=== PATIENT | female | born 1980 | race Caucasian/White ===

== ENCOUNTER 2022-08-29 10:23 | Outpatient (CLI) | payer MEDICAID, SELFPAY ==
[2022-08-29 14:14] LABS: Ferritin* 4.2 ng/mL (6.24-137.0)
[2022-08-30 19:20] LABS: Rheumatoid Factor <10 IU/mL (0-14)
[2022-08-31 00:32] LABS: Anti-Nuclear Ab(ANA)IgG ELISA None Detected (None Detected)
== END 2022-08-29 10:24 | disposition home or self-care (01) ==
PROVIDERS: PCP Family Medicine; Visit Provider Otolaryngology
DX: J32.9 Chronic sinusitis, unspecified (principal); G25.81 Restless legs syndrome
CPT/HCPCS: 82728; 84443; 86039; 86431; 86617; 86618

== ENCOUNTER 2022-09-12 09:55 | Outpatient (CLI) | payer MEDICAID, SELFPAY ==
--- NOTE | 2022-09-12 10:00 | CRLHL7_ITS ---
For Patients: As a result of the Century Cures Act, medical imaging exams and procedure reports are released immediately into your electronic medical record. You may view this report before your referring provider. If you have questions, please contact your health care provider. INDICATION: Sinusitis. TECHNIQUE: Noncontrast CT images acquired through the paranasal sinuses. COMPARISON: None. FINDINGS: No air-fluid levels to suggest acute sinusitis. Mild left maxillary sinus mucosal thickening. The left ethmoid infundibulum is mildly opacified. Minimal mucosal thickening in the right maxillary sinus. The right ethmoid infundibulum is widely patent. Mild mucosal thickening in the left frontal recess. The frontal sinuses are otherwise clear. Mild opacification of the anterior ethmoid air cells. Minimal mucosal thickening in the sphenoid sinuses. The sphenoethmoidal recesses are clear. There is 3 mm leftward nasal septal deviation and 5 mm leftward directed septal spur contacting the left inferior nasal turbinate. No nasal cavity masses. The mastoid air cells are clear. IMPRESSION: 1. Mild paranasal sinus mucosal disease. No air-fluid levels to suggest acute sinusitis. 2. Leftward nasal septal deviation with leftward directed septal spur contacting the left inferior nasal turbinate. Please note that all CT scans at this facility use dose modulation, iterative reconstruction, and/or weight-based dosing when appropriate to reduce radiation dose to as low as reasonably achievable. Dictated by Jose David Stone MD @ 09/12/2022 9:50:04 PM (Electronically Signed)
--- OUTSIDE RECORDS SUMMARY | 2022-09-12 10:01 | XMS_ITS | Clinical Summary ---
:1980 Author Organization [email or web address] [place] [address] Care Team Providers Name Role Phone Pcp, No Primary Care Provider Unavailable Allergies No known active allergies Medications Medication Sig Dispensed Refills Start Date End Date Status IBUPROFEN 200 MG TAB 3 tabs every 6 0 07/07/2002 Active hours as needed ibuprofen (ADVIL; MOTRIN) 0 11/29/2015 Active 800 mg tablet cyclobenzaprine Use up to three 45 tablet 0 12/20/2015 Active (FLEXERIL) 10 mg times daily for tabletIndications: muscle Chronic low back pain spasm/back pain. Use mostly at night only, may make you drowsy. norethindrone, Take 0.35 mg by 0 12/05/2020 Active Contraceptive, (MICRONOR, mouth once 28,) 0.35 mg tablet daily. rizatriptan (MAXALT) 10 0 12/05/2020 Active mg tablet Active Problems Problem Noted Date Acute pain of right knee 12/20/2015 Chronic low back pain 12/20/2015 Overview: Patient reported MRI at 16 years old wit h disk leaking. Migraine headache 12/20/2015 Social History Tobacco Use Types Packs/Day Years Used Date Current Every Day Smoker Cigarettes, Cigars 1 5 Smokeless Tobacco: Never Used Tobacco Cessation: Ready to Quit: No; Co unseling Given: Yes Alcohol Use Standard Drinks/Week Comments Yes 10 (1 standard drink = 0.6 oz pure alcoh ol) Sex Assigned at Date Recorded Not on file Obstetrics History Last Filed Vital Signs Vital Sign Reading Time Taken Comments Blood Pressure 111/78 01/11/2021 9:38 AM CDT tower Pulse 75 01/11/2021 9:38 AM CDT Temperature 36.4 ??C (97.5 ??F) 07/07/2006 7:28 AM CDT Respiratory Rate 16 07/07/2006 9:00 AM CDT Oxygen Saturation 99% 01/11/2021 9:38 AM CDT Inhaled Oxygen Concentration - - Weight 105.7 kg (233 lb) 01/11/2021 9:38 AM CDT Height 164 cm (5' 4.57) 12/20/2015 9:08 AM CDT Body Mass Index 39.3 12/20/2015 9:08 AM CDT Plan of Treatment Health Maintenance Due Date Last Done Comments COVID-19 vaccine series (#1) 1980 Tdap 02/09/1991 Depression screening for age 12+ 1992 HIV for age 15-65 02/09/1995 Hepatitis C screening for age 0502/09/1998 18-79 Tetanus booster 2000 BMI (ht and wt on same day) for 12/19/2016 12/20/2015 age 18+ Pap test for age 21-65 03/10/2022 03/10/2019, 03/10/2019, 06/13/2017, Additional history exists Influenza for age 9-49 06/07/2022 Results Not on filefrom Last 3 Months Insurance Payer Benefit Plan / Subscriber ID Effective Dates Phone Addre ss Type Group JAVON ALEJANDRO [place] [id number] 2019-Present [address] [place] [address] 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
== END 2022-09-12 09:56 | disposition home or self-care (01) ==
LOC: CT 09:56
PROVIDERS: PCP Family Medicine; Visit Provider Otolaryngology
DX: J32.9 Chronic sinusitis, unspecified (principal); J34.2 Deviated nasal septum
CPT/HCPCS: 70486

== ENCOUNTER 2024-10-06 11:52 | Emergency (ER) | payer OTHER, SELFPAY ==
[2024-10-06 11:57] VITALS: BP 165/89; PULSE 62; RESP 18; TEMP 36.8; O2SAT 96; BMI 40.3
--- NOTE | 2024-10-06 12:15 | ED_ITS ---
HPI - Headache General Chief Complaint: Headache/Migraine Stated Complaint: Migraine wants cocktail Time Seen by Provider: 10/06/24 11:59 History of Present Illness HPI Narrative: This 44-year-old female comes in with migraine headache symptoms that started about 10 hours prior to arrival. She states that she gets frequent migraine type headaches and this 1 is no different than others in the past. She does have a nausea with vomiting and light sensitivity. She states that she has run out of her Triptan medicine which usually helps or especially if she takes it early on in the course of a headache. She did take 3000 mg of Tylenol today without much relief. She does not report any neurologic deficit. Related Data Previous Rx's ?Medication ?Instructions ?Recorded ketorolac 10 mg tablet 10 mg PO Q8H 5 days #15 tabs 10/06/24 ondansetron HCl 4 mg tablet 4 mg PO Q6H #20 tabs 10/06/24 rizatriptan 10 mg tablet (Maxalt) 10 mg PO Q2-4H PRN migraine 10/06/24 headache #10 tabs Allergies Allergy/AdvReac Type Severity Reaction Status Date / Time No Known Drug Allergies Allergy Verified 04/06/24 16:36 Review of Systems Status of ROS: Reports: 10 or more systems reviewed and unremarkable except as noted in History and below Narrative: Constitutional: No fevers, no weight gain or loss. Eyes: No discharge. No vision changes. HENT: No congestion, no sore throat, no ear pain. Cardiovascular: No chest pain, no palpitations. Respiratory: No shortness of breath, no wheezes, no cough. Gastrointestinal: No abdominal pain, no diarrhea. Nausea with vomiting. Genitourinary: No dysuria, no hematuria. Musculoskeletal: Normal range of motion. Skin: No rashes, no pruritis. Neurological: No dizziness, weakness, sensory change, speech change. Endo/Heme/Allergies: No bruising or bleeding. No polydipsia. Pysch: no suicidality, no anxiety, no insomnia. All other systems reviewed and are negative. [facility] Medical History (Updated 10/06/24 @ 13:37 by Rogers Whittaker MD) History of abnormal cervical Papanicolaou smear (2012) ?Z87.42 - Personal history of other diseases of the female genital tract (ICD-10) Surgical History (Updated 08/27/22 @ 10:23 by Doretha Deleon MD) History of third molar tooth extraction ?K08.409 - Partial loss of teeth, unspecified cause, unspecified class (ICD- 10) History of elective ?Z98.890 - Other specified postprocedural states (ICD-10) History of colposcopy (2012) ?Z98.890 - Other specified postprocedural states (ICD-10) History of cholecystectomy (2012) ?Z90.49 - Acquired absence of other specified parts of digestive tract (ICD- 10) History of section (2013) ?Z98.891 - History of uterine scar from previous surgery (ICD-10) Family History (Updated 06/26/22 @ 12:03 by Kanika Randall) Unknown Alcohol dependence Paternal Grandmother Bone cancer Colon cancer Coronary artery disease Diabetes Uncle Breast cancer Colon cancer Maternal Grandfather Coronary artery disease Mother Depression Diabetes Social History (Updated 06/26/22 @ 12:03 by Kanika Randall) Narrative: cigarette smoke 8-10 per day, 25 years. does not drink alcohol, does not have a regular exercise regimen Smoking Status: Current every day smoker How often do you have a drink containing alcohol: never AUDIT-C Alcohol total score: 0 Non-prescribed substance use: denies use Exam Narrative: Exam Narrative: Constitutional: Well-developed, well-nourished, no acute distress. HEENT: Normocephalic, atraumatic. Neck: Normal range of motion. Nontender. Supple. Heart: Regular. No murmurs. Normal rate. Intact distal pulses. Lungs: Clear to auscultation. No chest discomfort. No wheezes, rhonchi, or rales. Abdomen: Normal bowel sounds. Nontender. No rebound tenderness. Genitalia: Deferred. Back: No midline tenderness. Normal range of motion. Extremities: Normal range of motion. No injury. Skin: Intact. No rash. Warm. No erythema or pallor. Neurologic: No altered sensation. No weakness. Alert and oriented. Psychiatric: No suicidality. No anxiety or depression. No insomnia. Nursing notes and vitals signs are reviewed. Const: Vital Signs, click to edit/add: Vital Signs - 24 hr 10/06/24 11:57 Temperature 98.2 F Pulse Rate [Pulse Oximeter] 62 Respiratory Rate 18 Blood Pressure [Ri ght Upper Arm] 165/89 H Pulse Oximetry 96 Oxygen Delivery Me thod Room Air Course Vital Signs Vital signs: Initial Vital Signs Temperature 98.2 F 10/06/24 11:57 Temperature Source Temporal Artery Scan 10/06/24 11:57 Pulse Rate 62 10/06/24 11:57 Respiratory Rate 18 10/06/24 11:57 Blood Pressure 165/89 H 10/06/24 11:57 Blood Pressure Mean 114 H 10/06/24 11:57 Blood Pressure Position Sitting 10/06/24 11:57 Pulse Oximetry 96 10/06/24 11:57 Oxygen Delivery Method Room Air 10/06/24 11:57 Vital Signs Temperature 98.2 F 10/06/24 11:57 Pulse Rate 62 10/06/24 11:57 Respiratory Rate 18 10/06/24 11:57 Blood Pressure 165/89 H 10/06/24 11:57 Pulse Oximetry 96 10/06/24 11:57 Oxygen Delivery Method Room Air 10/06/24 11:57 Temperature 98.2 F 10/06/24 11:57 Pulse Rate 62 10/06/24 11:57 Respiratory Rate 18 10/06/24 11:57 Blood Pressure 165/89 H 10/06/24 11:57 Pulse Oximetry 96 10/06/24 11:57 Oxygen Delivery Method Room Air 10/06/24 11:57 Medications Administered Medications: Discontinued Medications Generic Name Dose Route Start Last Admin Trade Name Marbella PRN Reason Stop Dose Admin Diphenhydramine HCl 50 mg 10/06/24 12:13 10/06/24 12:47 Diphenhydramine 50 Mg/Ml Inj IVP 10/06/24 12:14 50 mg ONCE ONE Administration Ketorolac Tromethamine 30 mg 10/06/24 12:13 10/06/24 12:47 Ketorolac 30 Mg/Ml Inj IVP 10/06/24 12:14 30 mg ONCE ONE Administration Ondansetron HCl 4 mg 10/06/24 12:13 10/06/24 12:47 Ondansetron 2 Mg/Ml Inj IVP 10/06/24 12:14 4 mg ONCE ONE Administration MDM - Headache MDM Narrative Medical decision making narrative: This patient comes in with migraine symptoms and states that she has run out of her Maxalt. An IV was established and she received Toradol 30 mg, Zofran 4 mg, and Benadryl 50 mg. This brought sufficient relief to her symptoms. I did provide prescription for Maxalt, Toradol, and Zofran for her. She does have an appointment with the primary physician in about a week for ongoing management. Discharge Plan Discharge Clinical Impression: Migraine Patient Disposition: Home, Self-Care Condition: Improved Additional Instructions: Take medication as needed and directed. Follow up with MD return if worsening. Prescriptions: New ondansetron HCl 4 mg tablet 4 mg PO Q6H Qty: 20 0RF ketorolac 10 mg tablet 10 mg PO Q8H 5 Days Qty: 15 0RF rizatriptan [Maxalt] 10 mg tablet 10 mg PO Q2-4H PRN (Reason: migraine headache) Qty: 10 2RF Rx Instructions: do not exceed 3 doses per 24 hrs Follow Up/Referrals: Maria E Iniguez, MANAGER [employer], [employer]ER [Nurse Practitioner] - Stand Alone Forms: [email or web address] Info Instructions
[2024-10-06] MEDS: ONDANSETRON 2 MG/ML inj 4 MG IVP (12:47)
[2024-10-06] MEDS: diphenhydrAMINE 50 MG/ML inj IVP (12:47)
[2024-10-06] MEDS: KETOROLAC 30 MG/ML inj IVP (12:47)
== END 2024-10-06 13:56 | disposition home or self-care (01) ==
PROVIDERS: Emergency Provider Emergency Medicine Emergency Medical Services
DX: G43.909 Migraine, unspecified, not intractable, without status migrainosus (principal)
CPT/HCPCS: 96374; 96375; 99283; 99284; J1200; J1885; J2405